=== PATIENT | female | born 1980 | race African-American/Black ===

== ENCOUNTER 2018-12-26 23:14 | Observation (INO) | payer OTHER | END 2018-12-27 00:14 | disposition home or self-care (01) | LOC: SPU 23:14 | PROVIDERS: ADMIT Obstetrics & Gynecology; ATTEND Obstetrics & Gynecology | DX: O36.8320 Maternal care for abnormalities of the fetal heart rate or rhythm, second trimester, not applicable or unspecified (principal); Z3A.24 24 weeks gestation of pregnancy | CPT/HCPCS: 81002; G0378 ==

== ENCOUNTER 2019-01-17 08:00 | Inpatient (IN) | payer MEDICAID ==
[~2019-01-17] VITALS: Ht 162.6 cm; Wt 117.9 kg
[2019-01-17] MEDS ORDERED: LR 1,000 ML IV ONE (09:07)
[2019-01-17] MEDS ORDERED: CLINDAMYCIN 900 mg/50mL D5W 50 ML IV ONE (09:15)
[2019-01-17] MEDS ORDERED: OXYTOCIN/0.9 % SODIUM CHLORIDE 1,000 ML IV ONE ×2 (09:59→11:57)
[2019-01-17] MEDS ORDERED: LR 1,000 ML IV SCH (09:59)
[2019-01-17] MEDS ORDERED: HYDROcodone/ACETAMIN 5-325 MG TAB (NORCO/ VICODIN) PO PRN ×2 (10:00)
[2019-01-17] MEDS ORDERED: ANUSOL 1 EA SUPP.RECT (PREPARATION H) RC PRN (10:00)
[2019-01-17] MEDS ORDERED: DOCUSATE SODIUM 100 MG CAPSULE PO PRN (10:00)
[2019-01-17] MEDS ORDERED: MORPHINE SULFATE 10 MG/ML VIAL IVP PRN (10:00)
[2019-01-17 10:19] LABS: BASOPHILS % (AUTO) 0.2 % (0.0-2.0); EOSINOPHILS # (AUTO) 0.4 K/uL (0.0-0.4); EOSINOPHILS % (AUTO) 3.8 % (0.0-4.0); HEMATOCRIT 34.3 % (36-48); HEMOGLOBIN 11.2 g/dL (12.0-16.0); LYMPHOCYTES # (AUTO) 1.8 K/uL (1.0-5.5); LYMPHOCYTES % (AUTO) 16.4 % (20.5-51.5); MEAN CORPUSCULAR HEMOGLOBIN 27 pg (27-31); MEAN CORPUSCULAR HGB CONC 33 % (32-36); MEAN CORPUSCULAR VOLUME 84 fL (79.0-98.0); MONOCYTES # (AUTO) 0.5 K/uL (0.0-1.0); MONOCYTES % (AUTO) 4.2 % (1.7-9.3); NEUTROPHILS # (AUTO) 8.2 K/uL (1.8-7.7); NEUTROPHILS % (AUTO) 75.4 % (40.0-70.0); PLATELET COUNT (AUTO) 256 K/uL (130-430); RED BLOOD CELL COUNT(AUTO) 4.11 MIL/uL (4.2-6.2); RED CELL DISTRIBUTION WIDTH 15.1 % (9.0-15.0); WHITE BLOOD COUNT (AUTO) 10.9 K/uL (4.8-10.8)
[2019-01-17 10:21] LABS: BILIRUBIN,URINE NEGATIVE (NEGATIVE); BLOOD, URINE 1+ (NEGATIVE); CLARITY/URINE SL CLOUDY (CLEAR); COLOR,URINE YELLOW (YELLOW); GLUCOSE,URINE NEGATIVE (NEGATIVE); KETONES,URINE NEGATIVE (NEGATIVE); LEUKOCYTE ESTERASE ,URINE NEGATIVE (NEGATIVE); NITRITE, URINE NEGATIVE (NEGATIVE); PROTEIN URINE NEGATIVE (NEGATIVE); UROBILINOGEN,URINE 0.2 (0.2-1.0)
[2019-01-17 10:34] LABS: BACTERIA,URINE MODERATE /HPF (None Seen); WBC,URINE 0-3 /HPF (0-3)
[2019-01-17 10:35] LABS: MUCUS,URINE None Seen /LPF (None Seen)
[2019-01-17] MEDS ORDERED: BUPIVACAINE /DEX PF 0.75% SPINAL 2 ML AMP INJ ONE (12:10)
[2019-01-17] MEDS ORDERED: OXYTOCIN/0.9 % SODIUM CHLORIDE 20 UNITS/1,000 ML BAG IV ONE (12:10)
[2019-01-17] MEDS ORDERED: NS IRRIG SOLN 1000 ML IR ONE (12:10)
[2019-01-17] MEDS ORDERED: LR 1,000 ML IV.SOLN IV ONE (12:10)
[2019-01-17] MEDS ORDERED: fentaNYL CITRATE 250 MCG/5 ML AMP ONE (12:10)
[2019-01-17] MEDS ORDERED: OXYTOCIN 10 UNIT/ML VIAL ONE (12:10)
[2019-01-17] MEDS ORDERED: MIDAZOLAM HCL 5 MG/ML VIAL (VERSED) IV ONE (12:10)
[2019-01-17] MEDS ORDERED: MORPHINE SULFATE 10MG/10ML PF AMP ONE (12:10)
[2019-01-17] MEDS ORDERED: NACL 0.9% 1,000 ML IV SCH (12:54)
[2019-01-17] MEDS ORDERED: ONDANSETRON HCL 4 MG/2 ML VIAL IVP PRN (13:00)
[2019-01-17] MEDS ORDERED: MORPHINE SULFATE 10MG/10ML PF AMP SP SCH (13:00)
[2019-01-17] MEDS ORDERED: KETOROLAC TROMETHAMINE 60 MG/2 ML VIAL IM PRN (13:00)
[2019-01-17] MEDS ORDERED: DIPHENHYDRAMINE INJ 50 MG/ML VIAL IM PRN (13:00)
[2019-01-17] MEDS ORDERED: NALOXONE HCL 0.4 MG/ML AMP (NARCAN) IVP PRN (13:00)
[2019-01-17 16:00] VITALS: BP_SYST 128
[2019-01-17] MEDS ORDERED: ACETAMINOPHEN 325 MG TABLET PO PRN (21:30)
[2019-01-17] MEDS ORDERED: HYDROcodone/ACETAMIN 10-325 MG TAB PO ONE (21:30)
[2019-01-18] MEDS: IBUPROFEN 600 MG TABLET PO PRN ×3 (06:09→17:51)
[2019-01-18] MEDS: SIMETHICONE 80 MG TAB.CHEW PO PRN (11:59)
[2019-01-18] MEDS: OXYCODONE/ACETAMINOPHEN 5-325 TABLET PO PRN (11:59)
[2019-01-19] MEDS: IBUPROFEN 600 MG TABLET PO PRN ×2 (00:59→05:07)
[2019-01-19] MEDS: OXYCODONE/ACETAMINOPHEN 5-325 TABLET PO PRN (02:46)
[2019-01-19] MEDS: SIMETHICONE 80 MG TAB.CHEW PO PRN (02:46)
== END 2019-01-19 05:11 | disposition home or self-care (01) | DRG 540 ==
LOC: SPU 08:00
PROVIDERS: ADMIT Obstetrics & Gynecology; ATTEND Obstetrics & Gynecology
PROC: 0UN90ZZ Release Uterus, Open Approach (ICD-10-PCS; 2019-01-17)
PROC: 10D00Z1 Extraction of Products of Conception, Low, Open Approach (ICD-10-PCS; principal; 2019-01-17 10:00)
DX: O36.4XX0 Maternal care for intrauterine death, not applicable or unspecified (principal); E66.01 Morbid (severe) obesity due to excess calories; O99.212 Obesity complicating pregnancy, second trimester; N73.6 Female pelvic peritoneal adhesions (postinfective); O99.89 Other specified diseases and conditions complicating pregnancy, childbirth and the puerperium; O34.211 Maternal care for low transverse scar from previous cesarean delivery; Z88.0 Allergy status to penicillin; Z3A.20 20 weeks gestation of pregnancy; Z37.1 Single stillbirth
CPT/HCPCS: 36415; 81000-TC; 85025; 86592; 86886; 86900; 86901; 88300; 88305; 94760; J1200; J2250; J2274; J2590; J3010; J3490; J7120

== ENCOUNTER 2021-10-21 04:33 | Emergency (ER) | payer MEDICAID ==
[~2021-10-21] VITALS: Ht 165.1 cm; Wt 113.4 kg
[2021-10-21 04:50] VITALS: BP_SYST 147
[2021-10-21] MEDS ORDERED: ACETAMINOPHEN 500 MG TABLET ONE (05:13)
[2021-10-21] MEDS ORDERED: METOCLOPRAMIDE HCL 10 MG/2 ML VIAL ONE (05:13)
[2021-10-21] MEDS: ACETAMINOPHEN 500 MG TABLET PO ONE (05:21)
[2021-10-21] MEDS: METOCLOPRAMIDE HCL 10 MG/2 ML VIAL IVP ONE (05:22)
[2021-10-21] MEDS: NACL 0.9% 1,000 ML IV ONE (05:23)
[2021-10-21 05:46] VITALS: BP_SYST 138
== END 2021-10-21 05:44 | disposition left against medical advice (07) ==
LOC: SED 04:33
DX: R51.9 Headache, unspecified (principal); Z88.0 Allergy status to penicillin; Z79.899 Other long term (current) drug therapy
CPT/HCPCS: 99283; 96374; 96361; J2765; J7030

== ENCOUNTER 2022-03-03 10:47 | Emergency (ER) | payer MEDICAID ==
[~2022-03-03] VITALS: Ht 160 cm; Wt 81.6 kg
--- NOTE | 2022-03-03 11:00 | NUR ---
Pt brought by self, A&Ox4, pt presents to ER with cough/ congestion, skin pink and warm , cap refill <3, VSS, will cont to monitor.
[2022-03-03 11:18] VITALS: BP_SYST 151
--- NOTE | 2022-03-03 11:30 | NUR ---
Dr Simpson evaluating patient at this time
[2022-03-03] MEDS ORDERED: D-ME118S48 PO (11:44)
[2022-03-03] MEDS ORDERED: TRAM50TA2 PO (11:44)
--- NOTE | 2022-03-03 13:07 | NUR ---
DR TORRES OUT TO TENT FOR RE-EVALUATION
--- NOTE | 2022-03-03 13:13 | NUR ---
Patient given written and verbal discharge instructions and verbalizes understanding. ER MD discussed with patient the results and treatment provided. Patient in stable condition. ID arm band removed. Rx of D-Methorphan and Ultram given. Patient educated on pain management and to follow up with PMD. Pain Scale 2/10. Opportunity for questions provided and answered. Medication side effect fact sheet provided.
[2022-03-03 13:14] VITALS: BP_SYST 151
== END 2022-03-03 13:13 | disposition home or self-care (01) ==
LOC: SED 10:47
DX: U07.1 COVID-19 (principal); R05.9 Cough, unspecified; R50.9 Fever, unspecified; H92.02 Otalgia, left ear; Z88.0 Allergy status to penicillin; Z79.899 Other long term (current) drug therapy
CPT/HCPCS: 99283